=== PATIENT | female | born 1985 | race Caucasian/White ===

== ENCOUNTER 2017-12-09 22:36 | Inpatient (IN) ==
[2017-12-10] MEDS ORDERED: Temazepam 15 MG Capsule PO PRN (01:35)
[2017-12-10] MEDS ORDERED: Morphine Inj 4 MG/ML Vial IV.PUSH PRN (01:45)
[2017-12-10] MEDS: Sod Chloride 0.9% Inj 1,000 ML IV.CONT SCH ×3 (01:55→22:36)
--- NOTE | 2017-12-10 03:32 | P.HP ---
History of Present Illness Service: [facility] Primary Care Physician: No Primary Care Physician History of Present Illness: 32-year-old female who is status post gastric sleeve in June of this year presents the emergency department for the evaluation of abdominal pain. Patient reports that on yesterday at approximately 4 PM she started to have severe pain in her left lower quadrant. She thought it was gas initially and attempted to massage her abdomen to make the gas pains go away. She reports that her was massaging her abdomen when he felt a hard lump in the left lower quadrant. They came to the [facility] emergency department where CT scan revealed a abdominal wall hernia containing small bowel with associated enteritis and partial obstruction. The hernia was reduced successfully in the emergency department and the patient was sent home. She reports that after getting food at [email or web address] she had the same pain returned and the lump was present again. She returned to the [facility] emergency department and was transferred to [facility] for further evaluation. Review of Systems Denies fever or chills Denies blurry vision, otorrhea, rhinorrhea Denies sore throat and cough No chest pain, palpitations No shortness of breath or wheezing Denies constipation/diarrhea/nausea/vomiting Denies muscle pain Denies focal weakness No rashes PMFSH - History History Provided By: Patient - Medical History Medical History: Medical History (Last Updated 12/09/17 @ 18:28 by Yady Rodgers RN) Anxiety Depression Hx of small bowel obstruction PCOS (polycystic ovarian syndrome) - Surgical History Surgical History: Surgical History (Last Updated 12/09/17 @ 18:28 by Yady Rodgers RN) Hx of abdominal surgery Hx of section Hx of cholecystectomy - Family History Family History: Family History (Last Updated 12/10/17 @ 03:29 by Elda Brady MD) Other Diabetes mellitus Hypertension - Tobacco History Second Hand Smoke Exposure: No Smoking Status: Never smoker - Alcohol History How Often Do You Have a Drink Containing Alcohol: Never - Substance Use History Substance History: No History of Abuse Medications and Allergies Active Medications: Active Medications Sodium Chloride (Ns Inj) 1,000 mls @ 100 mls/hr IV.CONT .Q10H TABITHA Last Admin: 12/10/17 01:55 Dose: 100 mls/hr Morphine Sulfate (Morphine Inj) 2 mg IV.PUSH Q4H PRN PRN Reason: PAIN SCALE 6 TO 10 Ondansetron HCl (Zofran Inj) 4 mg IV.PUSH Q6H PRN PRN Reason: NAUSEA OR VOMITING Temazepam (Restoril) 15 mg PO HS PRN PRN Reason: INSOMNIA Allergies Allergy/AdvReac Type Severity Reaction Status Date / Time hydrocodone [From Vicodin] Allergy Dizziness Verified 12/09/17 18:22 NSAIDS (Non-Steroidal AdvReac Bleeding Verified 12/09/17 18:23 Anti-Inflamma Home Medications Medication Instructions Recorded Confirmed Type No Known Home Medications 12/09/17 12/09/17 History Exam Vital signs: Vital Signs 12/10/17 01:16 12/10/17 03:21 Temperature 98.0 F 98.7 F Pulse Rate 78 84 Respiratory Rate 17 17 Blood Pressure 117/76 109/60 Pulse Oximetry 94 L 97 Narrative: Gen.: No acute distress Head: Normocephalic. Atraumatic. EENT: Pupils equal round and reactive to light. Nose without drainage. Airway intact. Throat without injection. Cardiovascular: Regular rate and rhythm. No murmurs, rubs or gallops. Respiratory: Lungs clear to auscultation bilaterally. No wheezes or rhonchi. Abdomen: Soft, nontender, nondistended. No peritoneal signs. No palpable masses. Musculoskeletal: No gross deformities. No edema. Skin: No obvious rashes or erythema. Neuro: Sensory and motor grossly intact. Cranial nerves II through XII grossly intact. Psych: Appropriate mood and affect Caprini VTE Risk Assessment Caprini VTE Risk Assessment: No/Low Risk (score <= 1) Caprini Risk Assessment Model: Point Value = 1 Point Value = 2 Point Value = 3 Point Value = 5 Age 41-60 Minor surgery BMI > 25 kg/m2 Swollen legs Varicose veins or History of unexplained or recurrent spontaneous Oral contraceptives or hormone replacement Sepsis (< 1 month) Serious lung disease, including pneumonia (< 1 month) Abnormal pulmonary function Acute myocardial infarction Congestive heart failure (< 1 month) History of inflammatory bowel disease Medical patient at bed rest Age 61-74 Arthroscopic surgery Major open surgery (> 45 min) Laparoscopic surgery (> 45 min) Malignancy Confined to bed (> 72 hours) Immobilizing plaster cast Central venous access Age >= 75 History of VTE Family history of VTE Factor V Leiden Prothrombin [id number] Lupus anticoagulant Anticardiolipin antibodies Elevated serum homocysteine Heparin-induced thrombocytopenia Other congenital or acquired thrombophilia Stroke (< 1 month) Elective arthroplasty Hip, pelvis, or leg fracture Acute spinal cord injury (< 1 month) Prophylaxis Regimen: Total Risk Factor Score Risk Level Prophylaxis Regimen 0-1 Low Early ambulation 2 Moderate Order ONE of the following: *Sequential Compression Device (SCD) *Heparin 5000 units SQ BID 3-4 Higher Order ONE of the following medications: *Heparin 5000 units SQ TID *Enoxaparin/Lovenox 40 mg SQ daily (WT < 150 kg, CrCl > 30 mL/min) *Enoxaparin/Lovenox 30 mg SQ daily (WT < 150 kg, CrCl > 10-29 mL/min) *Enoxaparin/Lovenox 30 mg SQ BID (WT < 150 kg, CrCl > 30 mL/min) AND/OR *Sequential Compression Device (SCD) 5 or more Highest Order ONE of the following medications: *Heparin 5000 units SQ TID (Preferred with Epidurals) *Enoxaparin/Lovenox 40 mg SQ daily (WT < 150 kg, CrCl > 30 mL/min) *Enoxaparin/Lovenox 30 mg SQ daily (WT < 150 kg, CrCl > 10-29 mL/min) *Enoxaparin/Lovenox 30 mg SQ BID (WT < 150 kg, CrCl > 30 mL/min) AND *Sequential Compression Device (SCD) Assessment and Plan - Plan Assessment/plan: 1. Abdominal wall hernia/partial small bowel obstruction For details of CT scan see HPI General surgery consulted, appreciate recommendations N.p.o. Morphine for pain FEN N.p.o. NS at 100 cc/hour Electrolytes: Monitor and replete prn
--- NOTE | 2017-12-10 11:16 | P.PNIM ---
Subjective Interval history: 32-year-old female who is status post gastric sleeve in June of this year presents the emergency department for the evaluation of abdominal pain. Patient reports that on yesterday at approximately 4 PM she started to have severe pain in her left lower quadrant. She thought it was gas initially and attempted to massage her abdomen to make the gas pains go away. She reports that her was massaging her abdomen when he felt a hard lump in the left lower quadrant. They came to the [facility] emergency department where CT scan revealed a abdominal wall hernia containing small bowel with associated enteritis and partial obstruction. The hernia was reduced successfully in the emergency department and the patient was sent home. She reports that after getting food at [employer] she had the same pain returned and the lump was present again. She returned to the [facility] emergency department and was transferred to [facility] for further evaluation. 12-10 PATIENT HAS BEEN SEEN BY SURGERY MAY GO TO SURGERY TODAY OR TOMORROW ONLY HAS ABDOMINAL PAIN ON MOVEMENT AM LABS Physical Exam Vital signs: Vital Signs 12/10/17 01:16 12/10/17 03:21 12/10/17 08:00 Temperature 98.0 F 98.7 F 98.4 F Pulse Rate 78 84 73 Respiratory Rate 17 17 16 Blood Pressure 117/76 109/60 109/55 L Pulse Oximetry 94 L 97 96 Intake & Output 12/09/17 12/10/17 12/10/17 18:59 06:59 18:59 Other: # Voids 1 Narrative: Awake alert and oriented 3 talkative and cooperative Gen.: No acute distress Head: Normocephalic. Atraumatic. EENT: Pupils equal round and reactive to light. Nose without drainage. Airway intact. Throat without injection. Tongue is midline Neck is supple no obvious JVD Cardiovascular: Regular rate and rhythm. No murmurs, rubs or gallops. S1-S2 no S3 or S4 Respiratory: Lungs clear to auscultation bilaterally. No wheezes or rhonchi. Abdomen: Soft, nontender, nondistended. No peritoneal signs. No palpable masses. Musculoskeletal: No gross deformities. No edema. Skin: No obvious rashes or erythema. Neuro: Sensory and motor grossly intact. Cranial nerves II through XII grossly intact. Psych: Appropriate mood and affect Assessment and Plan - Plan 1. Abdominal wall hernia/partial small bowel obstruction For details of CT scan see HPI General surgery consulted, appreciate recommendations N.p.o. Morphine for pain FEN N.p.o. NS at 100 cc/hour Electrolytes: Monitor and replete prn Code Status: Full code Discussed Condition With: RN and patient and case management and family Discharge Planning: Once cleared by surgery
--- NOTE | 2017-12-10 15:05 | MB ---
cc: Shankar Banks MD DATE: 12/10/2017 CHIEF COMPLAINTS: Abdominal wall hernia, bowel obstruction. HISTORY OF PRESENT ILLNESS: The patient is a 32-year-old female with history of sleeve gastrectomy in 06/2017 with previous history of exploratory laparotomy for bowel obstruction in the past and a . The patient presents with acute onset of abdominal pain and nausea and vomiting. She states the pain started at 4 p.m. yesterday as severe left lower quadrant. She states she has not passed gas and had some associated nausea and vomiting. Pain was 8/10, currently 3/10, worse with movement, better with lying still. She came to the emergency department for further evaluation including a CT scan showing a moderate-size left lower umbilical ventral hernia containing small bowel. This was done at [facility] and the patient was reduced in the ER. The patient was sent home; however, developed recurrence of a hernia several hours post-discharge. Therefore, transferred to [place] for definitive management. PAST MEDICAL HISTORY: Morbid obesity, PCOS, depression, anxiety, small-bowel obstruction. PAST SURGICAL HISTORY: Cholecystectomy, , sleeve gastrectomy, bowel obstruction surgery in 2012, exploratory laparotomy. SOCIAL HISTORY: Denies smoking, ETOH, or IVDA. ALLERGIES: HYDROCODONE AND NSAIDS. MEDICATIONS: See EMR. FAMILY HISTORY: Mother with diabetes and hypertension. REVIEW OF SYSTEMS: GENERAL: Denies fevers or chills. HEENT: Denies eye pain or ear pain. NECK: No swelling or pain. LUNGS: Denies cough or wheeze. HEART: Denies palpitations or chest pain. CONSTITUTIONAL: Complains of a hernia, nausea, vomiting, abdominal pain. GENITOURINARY: Denies dysuria or hematuria. ENDOCRINE: Denies polyuria or polydipsia. INTEGUMENT: Denies any masses or lesions. PSYCHIATRIC: Denies change in mood or sensorium. PHYSICAL EXAMINATION: GENERAL: The patient in no acute distress. VITAL SIGNS: Temperature 98, pulse 78, respiratory 17, blood pressure 117/76, saturation 94%. HEENT: Pupils equal, round, reactive. NECK: Supple. Trachea midline. LUNGS: Clear to auscultation, bilateral expansion. HEART: S1, S2 regular. ABDOMEN: Soft. Positive palpable hernia defect appears currently reduced. Positive tenderness to palpation. No rebound, no guarding. EXTREMITIES: Warm and well perfused. NEUROLOGIC: GCS of 15, 5/5 motor in all extremities. PSYCHIATRIC: Appropriate mood, appropriate insight. LABORATORY AND DIAGNOSTIC DATA: WBC 11, hemoglobin 14.9, hematocrit 42.8, platelets 372,000. Sodium 141, potassium 3.6, chloride 105, BUN 19, creatinine 0.7, AST 14, ALT 24, alkaline phosphatase of 72, lipase 25. DIAGNOSTIC DATA: CT reviewed by myself, showing a large hernia defect lower umbilical midline. Also a secondary smaller defect proximal to this. ASSESSMENT: The patient is a 32-year-old female with a history of sleeve gastrectomy, history of bowel obstruction, and exploratory laparotomy, who presents with initial incarceration of incisional hernia, currently reduced; however, presence of persistent pain and recurrence. PLAN: As a full workup for this patient with the above main issues, the patient has done relatively well from her sleeve gastrectomy. She has lost 60 pounds. She continues to use vitamins and is feeling pretty well from this. She does appear to have developed an incisional hernia as a result of her open midline laparotomy scar and warrants repair. Discussed with the patient in detail. We will attempt a laparoscopic repair, possible open. The patient states understanding and agrees and would like to proceed. MD HI Simons/ashley , 02:29 PM , 02:39 PM
[2017-12-10 15:44] LABS: Baso % (Auto) 0.5 % (0.0-2.0); Eos # (Auto) 0.1 th/mm3 (0.0-0.4); Eos % (Auto) 0.9 % (0.0-4.0); Hematocrit 40.1 % (35.0-46.0); Hemoglobin 13.9 gm/dL (11.6-15.3); Lymph # (Auto) 2.6 th/mm3 (1.0-4.8); Lymph % (Auto) 30.7 % (9.0-44.0); Mean Corpuscular HGB Conc 34.7 % (32.0-36.0); Mean Corpuscular Hemoglobin 31.1 pg (27.0-34.0); Mean Corpuscular Volume 89.7 fL (80.0-100.0); Mean Platelet Volume 8.4 fL (7.0-11.0); Mono # (Auto) 0.7 th/mm3 (0.0-0.9); Mono % (Auto) 7.8 % (0.0-8.0); Neut # (Auto) 5.2 th/mm3 (1.8-7.7); Neut % (Auto) 60.1 % (16.0-70.0); Platelet Count 323 th/mm3 (150-450); Red Blood Count 4.47 mil/mm3 (4.00-5.30); Red Cell Distribution Width 13.1 % (11.6-17.2); White Blood Count 8.6 th/mm3 (4.0-11.0)
[2017-12-10 16:18] LABS: Anion Gap 11 meq/L (5-15); Blood Urea Nitrogen 12 mg/dL (7-18); Calcium 8.3 mg/dL (8.5-10.1); Carbon Dioxide 23.5 meq/L (21.0-32.0); Chloride 109 meq/L (98-107); Glomerular Filtration Rate Greater Than 89 mL/min (>89); Glucose,Random 78 mg/dL (74-106); Potassium 3.7 meq/L (3.5-5.1); Sodium 143 meq/L (136-145)
[2017-12-10] MEDS ORDERED: Chlorhexidine Gluconate 2% 1 Pack (2 Cloths) TOPICAL SCH (23:15)
[2017-12-10] MEDS ORDERED: Sodium Chlor 0.9% Inj 500 ML IV.SIG SCH (23:45)
[2017-12-11 06:53] LABS: Baso # (Auto) 0.1 th/mm3 (0.0-0.2); Baso % (Auto) 0.5 % (0.0-2.0); Eos # (Auto) 0.1 th/mm3 (0.0-0.4); Eos % (Auto) 1.3 % (0.0-4.0); Hematocrit 39.3 % (35.0-46.0); Hemoglobin 13.2 gm/dL (11.6-15.3); Lymph # (Auto) 4.2 th/mm3 (1.0-4.8); Lymph % (Auto) 39.3 % (9.0-44.0); Mean Corpuscular HGB Conc 33.7 % (32.0-36.0); Mean Corpuscular Hemoglobin 30.6 pg (27.0-34.0); Mean Corpuscular Volume 90.9 fL (80.0-100.0); Mean Platelet Volume 8.2 fL (7.0-11.0); Mono % (Auto) 9.6 % (0.0-8.0); Neut # (Auto) 5.3 th/mm3 (1.8-7.7); Neut % (Auto) 49.3 % (16.0-70.0); Platelet Count 292 th/mm3 (150-450); Red Blood Count 4.32 mil/mm3 (4.00-5.30); Red Cell Distribution Width 13.4 % (11.6-17.2); White Blood Count 10.8 th/mm3 (4.0-11.0)
[2017-12-11 07:06] LABS: Anion Gap 7 meq/L (5-15); Aspartate Aminotransferase 10 U/L (15-37); Blood Urea Nitrogen 7 mg/dL (7-18); Calcium 8.2 mg/dL (8.5-10.1); Carbon Dioxide 25.8 meq/L (21.0-32.0); Chloride 110 meq/L (98-107); Glomerular Filtration Rate Greater Than 89 mL/min (>89); Glucose,Random 83 mg/dL (74-106); Magnesium 2.1 mg/dL (1.5-2.5); Potassium 3.7 meq/L (3.5-5.1); Sodium 143 meq/L (136-145)
[2017-12-11 07:15] LABS: Alanine Aminotransferase 17 U/L (10-53); Alkaline Phosphatase 55 U/L (45-117); Free T4 (Free Thyroxine) 1.12 ng/dL (0.76-1.46); Phosphorus 4.1 mg/dL (2.5-4.9); Total Protein 6.1 g/dL (6.4-8.2)
[2017-12-11] MEDS ORDERED: Bupivacaine/Epinephrine Inj 0.25% 50 ML Vial ONE (08:32)
[2017-12-11] MEDS ORDERED: Dexmedetomidine Inj 200 MCG/2 ML Vial ONE (10:25)
[2017-12-11] MEDS: Sod Chloride 0.9% Inj 1,000 ML IV.CONT SCH ×2 (10:30→17:09)
--- NOTE | 2017-12-11 11:35 | P.OP ---
- Preoperative Diagnosis (1) Incarcerated incisional hernia - Postoperative Diagnosis (1) Incarcerated incisional hernia Date of procedure: 12/11/17 Procedure: lap incisional ventral hernia repair with underlay mesh Anesthesia: GETA Surgeon: Shankar Banks MD Estimated blood loss (mL): 5 Pathology: none sent Operation and Findings: ischemia of bowel segment improved at end of operation 3cm defect [id number] placment
[2017-12-11] MEDS ORDERED: fentaNYL Citrate Inj 100 MCG/2 ML Ampul ONE (11:51)
[2017-12-11] MEDS ORDERED: *morphine SULFATE 4 MG/ML PERIprocedure ONLY ONE ×3 (11:54→12:12)
[2017-12-11] MEDS ORDERED: Glycopyrrolate Inj 1 MG/5 ML Syringe IV.PUSH ONE (12:00)
[2017-12-11] MEDS ORDERED: Neostigmine Inj 5 MG/5 ML Syringe IV.PUSH ONE (12:00)
[2017-12-11] MEDS ORDERED: Lidocaine PF 1% Inj 5 ML Syringe INFILTRATN ONE (12:00)
[2017-12-11] MEDS ORDERED: *Meperidine Inj 25 MG/ML Vial PERIprocedural Use ONLY ONE (13:24)
--- NOTE | 2017-12-11 14:57 | P.PNIM ---
Subjective Interval history: 32-year-old female who is status post gastric sleeve in June of this year presents the emergency department for the evaluation of abdominal pain. Patient reports that on yesterday at approximately 4 PM she started to have severe pain in her left lower quadrant. She thought it was gas initially and attempted to massage her abdomen to make the gas pains go away. She reports that her was massaging her abdomen when he felt a hard lump in the left lower quadrant. They came to the [facility] emergency department where CT scan revealed a abdominal wall hernia containing small bowel with associated enteritis and partial obstruction. The hernia was reduced successfully in the emergency department and the patient was sent home. She reports that after getting food at [employer] she had the same pain returned and the lump was present again. She returned to the [facility] emergency department and was transferred to [facility] for further evaluation. 12-10 PATIENT HAS BEEN SEEN BY SURGERY MAY GO TO SURGERY TODAY OR TOMORROW ONLY HAS ABDOMINAL PAIN ON MOVEMENT AM LABS 12-11 HAD SURGERY TODAY WITH DR BANKS SEEN IN PACU QUITE LETHARGIC BUT COMFORTABLE AT THIS TIME AM LABS HOPEFULLY HOME TOMORROW Physical Exam Vital signs: Vital Signs 12/10/17 16:00 12/11/17 05:31 12/11/17 07:49 Temperature 98.5 F 98.0 F Pulse Rate 82 83 Respiratory Rate 16 16 16 Blood Pressure 120/55 L 110/60 Pulse Oximetry 98 99 12/11/17 12:47 Temperature 97.6 F Pulse Rate 66 Respiratory Rate 18 Blood Pressure 103/58 L Pulse Oximetry Intake & Output 12/10/17 12/11/17 12/11/17 18:59 06:59 18:59 Intake Total 1800 / 1800 1000 / 1000 2000 / 2000 Output Total 1500 / 1500 110 / 110 Balance 300 / 300 1000 / 1000 1890 / 1890 Weight 94 kg Intake: IV 1000 / 1000 1000 / 1000 1000 / 1000 NS Inj 1,000 ML @ 100 mls/hr IV 1000 / 1000 1000 / 1000 1000 / 1000 .CONT .Q10H TABITHA Rx#:[id number] Oral 800 / 800 Anesthesia Amount 1000 / 1000 Output: Urine 1500 / 1500 Estimated Blood Loss 10 / 10 Urine Amount (Catheter) 100 / 100 Indwelling Urethral Catheter 100 / 100 Other: # Voids 5 Date of Last Bowel Movement 12/09/17 Narrative: Awake alert and oriented 3 talkative and cooperative Gen.: No acute distress Head: Normocephalic. Atraumatic. EENT: Pupils equal round and reactive to light. Nose without drainage. Airway intact. Throat without injection. Tongue is midline Neck is supple no obvious JVD Cardiovascular: Regular rate and rhythm. No murmurs, rubs or gallops. S1-S2 no S3 or S4 Respiratory: Lungs clear to auscultation bilaterally. No wheezes or rhonchi. Abdomen: Soft, nontender, nondistended. No peritoneal signs. No palpable masses. Musculoskeletal: No gross deformities. No edema. Skin: No obvious rashes or erythema. Neuro: Sensory and motor grossly intact. Cranial nerves II through XII grossly intact. Psych: Appropriate mood and affect - Urinary Catheter Management Indwelling Urethral Catheter Cath placed during this visit: yes Reason for continuing: Acute urinary retention Insertion date: 12/11/17 Insertion time: 09:20 Results - Labs CBC & Chem 7: 12/11/17 05:45 12/11/17 05:45 Laboratory Results - last 24 hr 12/10/17 12/10/17 12/11/17 14:06 14:06 05:45 WBC 8.6 10.8 RBC 4.47 4.32 Hgb 13.9 13.2 Hct 40.1 39.3 MCV 89.7 90.9 MCH 31.1 30.6 MCHC 34.7 33.7 RDW 13.1 13.4 Plt Count 323 292 MPV 8.4 8.2 Neut % (Auto) 60.1 49.3 Lymph % (Auto) 30.7 39.3 Moffat % (Auto) 7.8 9.6 H Eos % (Auto) 0.9 1.3 Baso % (Auto) 0.5 0.5 Neut # (Auto) 5.2 5.3 Lymph # (Auto) 2.6 4.2 Moffat # (Auto) 0.7 1.0 H Eos # (Auto) 0.1 0.1 Baso # (Auto) 0.0 0.1 WBC Differential . . Differential Comment Auto diff final Auto diff final Sodium 143 Potassium 3.7 Chloride 109 H Carbon Dioxide 23.5 Anion Gap 11 BUN 12 Creatinine 0.63 Estimated GFR Greater than 89 Random Glucose 78 Calcium 8.3 L Phosphorus Magnesium Total Bilirubin AST ALT Alkaline Phosphatase Total Protein Albumin TSH Free T4 12/11/17 05:45 WBC RBC Hgb Hct MCV MCH MCHC RDW Plt Count MPV Neut % (Auto) Lymph % (Auto) Moffat % (Auto) Eos % (Auto) Baso % (Auto) Neut # (Auto) Lymph # (Auto) Moffat # (Auto) Eos # (Auto) Baso # (Auto) WBC Differential Differential Comment Sodium 143 Potassium 3.7 Chloride 110 H Carbon Dioxide 25.8 Anion Gap 7 BUN 7 Creatinine 0.64 Estimated GFR Greater than 89 Random Glucose 83 Calcium 8.2 L Phosphorus 4.1 Magnesium 2.1 Total Bilirubin 0.4 AST 10 L ALT 17 Alkaline Phosphatase 55 Total Protein 6.1 L D Albumin 3.0 L D TSH 1.390 Free T4 1.12 - Procedures - Preoperative Diagnosis (1) Incarcerated incisional hernia - Postoperative Diagnosis (1) Incarcerated incisional hernia Date of procedure: 12/11/17 Procedure: lap incisional ventral hernia repair with underlay mesh Anesthesia: GETA Surgeon: Shankar Banks MD Estimated blood loss (mL): 5 Pathology: none sent Operation and Findings: ischemia of bowel segment improved at end of operation 3cm defect [id number] placment Assessment and Plan - Plan 1. Abdominal wall hernia/partial small bowel obstruction For details of CT scan see HPI General surgery consulted, appreciate recommendations N.p.o. Morphine for pain SP HERNIA REPAIR WITH MESH BY DR BANKS 8-13 FEN DIET PER SURGERY NS at 100 cc/hour Electrolytes: Monitor and replete prn HOPEFULLY HOME TOMORROW AM LABS PAIN CONTROL Code Status: FULL CODE Discussed Condition With: RN AND PT Discharge Planning: Once cleared by surgery
[2017-12-11] MEDS ORDERED: *HYDROmorphone PF Inj 1 MG/ML Ampul PERIprocedural Use ONLY ONE (15:00)
[2017-12-11 16:05] LABS: Hemoglobin A1c 5.7 % (4.3-6.0)
[2017-12-11] MEDS: ceFAZolin Inj 2,000 MG in Sodium Chlor 0.9% Inj 80 ML IV.SIG SCH (17:09)
[2017-12-12] MEDS: ceFAZolin Inj 2,000 MG in Sodium Chlor 0.9% Inj 80 ML IV.SIG SCH ×2 (01:48→13:10)
[2017-12-12] MEDS: Sod Chloride 0.9% Inj 1,000 ML IV.CONT SCH ×2 (03:51→15:25)
[2017-12-12] MEDS ORDERED: Acetaminophen 325 MG Tablet PO PRN (08:28)
--- NOTE | 2017-12-12 08:35 | P.PN ---
Subjective Interval history: This is a pleasant 32 y/o Female who is in status pos gastric sleeve in June this year, who came to ER with abdominal pain on Left Lower quadrant, CT abdomen revealed a abdominal wall hernia containing small bowel with associated enteritis and partial obstruction. The hernia was reduced successfully in the emergency department and the patient was sent home. She reports that after getting food at [employer] she had the same pain returned and the lump was present again. is in status post Hernia repair performed 12/11/17. was left Urinary Catheter due to Urinary retention 12/12: Stable in her bedroom her present, no pain has a binder on her abdomen, Vizcarra cath present discussed with General Surgery RODRIGUEZ carlson to remove Vizcarra cath also patient complaint of some Dysuria probable related to Vizcarra cath, asked for urinalysis, and following, not yet clear for discharge by General Surgery probable later today. Physical Exam Vital signs: Vital Signs 12/11/17 11:44 12/11/17 12:00 12/11/17 12:15 Temperature Pulse Rate 66 61 58 L Respiratory Rate 20 20 20 Blood Pressure 103/58 L 105/64 103/64 Pulse Oximetry 94 L 96 96 12/11/17 12:30 12/11/17 12:47 12/11/17 14:00 Temperature 97.6 F Pulse Rate 61 66 59 L Respiratory Rate 20 18 20 Blood Pressure 104/62 103/58 L 96/58 L Pulse Oximetry 96 96 12/11/17 15:15 12/11/17 16:00 12/11/17 20:00 Temperature 97.9 F 98.1 F 98.3 F Pulse Rate 61 64 66 Respiratory Rate 20 17 20 Blood Pressure 100/56 L 111/64 113/56 L Pulse Oximetry 96 92 L 94 L 12/12/17 00:00 12/12/17 03:46 Temperature 98.3 F 97.6 F Pulse Rate 82 76 Respiratory Rate 17 18 Blood Pressure 114/62 104/61 Pulse Oximetry 98 95 Intake & Output 12/11/17 12/12/17 12/12/17 18:59 06:59 18:59 Intake Total 3100 / 3100 1460 / 1460 Output Total 110 / 110 2900 / 2900 Balance 2990 / 2990 -1440 / -1440 Intake: IV 2100 / 2100 1100 / 1100 NS Inj 1,000 ML @ 100 mls/hr IV 2000 / 2000 1000 / 1000 .CONT .Q10H TABITHA Rx#:[id number] Ancef Inj 2,000 MG In NS Inj 80 100 / 100 100 / 100 ML @ 100 mls/hr IV.SIG Q8H TABITHA Rx#:[id number] Oral 360 / 360 Anesthesia Amount 1000 / 1000 Output: Estimated Blood Loss 10 / 10 Urine Amount (Catheter) 100 / 100 2900 / 2900 Indwelling Urethral Catheter 100 / 100 2900 / 2900 Other: Date of Last Bowel Movement 12/09/17 Narrative: Awake Obesity, no acute distress. Gen.: No acute distress Head: Normocephalic. Atraumatic. EENT: Pupils equal round and reactive to light. Nose without drainage. Airway intact. Throat without injection. Tongue is midline Neck is supple no obvious JVD Cardiovascular: Regular rate and rhythm. No murmurs, rubs or gallops. S1-S2 no S3 or S4 Respiratory: Lungs clear to auscultation bilaterally. No wheezes or rhonchi. Abdomen: Soft, nontender, nondistended. No peritoneal signs. No palpable masses. Musculoskeletal: No gross deformities. No edema. Skin: No obvious rashes or erythema. Neuro: Sensory and motor grossly intact. Cranial nerves II through XII grossly intact. Psych: Appropriate mood and affect - Urinary Catheter Management Indwelling Urethral Catheter Cath placed during this visit: yes Reason for continuing: Hourly intake/output Insertion date: 12/11/17 Insertion time: 09:20 Results - Labs CBC & Chem 7: 12/11/17 05:45 12/11/17 05:45 Laboratory Results - last 24 hr 12/11/17 05:45 Hemoglobin A1c 5.7 - Procedures - Preoperative Diagnosis (1) Incarcerated incisional hernia - Postoperative Diagnosis (1) Incarcerated incisional hernia Date of procedure: 12/11/17 Procedure: lap incisional ventral hernia repair with underlay mesh Anesthesia: GETA Surgeon: Shankar Banks MD Estimated blood loss (mL): 5 Pathology: none sent Operation and Findings: ischemia of bowel segment improved at end of operation 3cm defect [id number] placment Assessment and Plan - Plan 1. Abdominal wall hernia/partial small bowel obstruction For details of CT scan see HPI SP HERNIA REPAIR WITH MESH BY DR BANKS 12-11 IV fluid. Discussed with nurse the patient had some Urinary changes and asked for Urinalysis. 2. Obesity strongly recommended diet and exercise DVT prophylaxis SCDs encourage ambulation. Code Status: Full Code Discussed Condition With: patient, her in the room and Nurse Miss Cedillo Discharge Planning: once cleared by General solutions specialist.
[2017-12-12] MEDS ORDERED: ceFAZolin Inj 2,000 MG in Sodium Chlor 0.9% Inj 80 ML IV.SIG SCH (12:00)
[2017-12-12 12:39] LABS: Bacteria,Urine Rare /hpf; Bilirubin,Urine Negative (Negative); Clarity,Urine Clear (Clear); Color,Urine Yellow (Yellw/Straw); Glucose,Urine (UA) Negative (Negative); Leukocyte Esterase,Urine Negative (Negative); Mucus,Urine Few /lpf (Occasional); Nitrite,Urine Negative (Negative); Specific Gravity,Urine 1.008 (1.002-1.035)
--- NOTE | 2017-12-12 14:07 | P.PNGS ---
Subjective Patient reports: tolerating liquids well (no acute issues, no flatus) Physical Exam Vital signs: Vital Signs 12/11/17 15:15 12/11/17 16:00 12/11/17 20:00 Temperature 97.9 F 98.1 F 98.3 F Pulse Rate 61 64 66 Respiratory Rate 20 17 20 Blood Pressure 100/56 L 111/64 113/56 L Pulse Oximetry 96 92 L 94 L 12/12/17 00:00 12/12/17 03:46 12/12/17 08:00 Temperature 98.3 F 97.6 F 97.9 F Pulse Rate 82 76 77 Respiratory Rate 17 18 17 Blood Pressure 114/62 104/61 109/58 L Pulse Oximetry 98 95 93 L 12/12/17 12:00 Temperature 97.8 F Pulse Rate 73 Respiratory Rate 17 Blood Pressure 117/65 Pulse Oximetry 92 L Intake & Output 12/11/17 12/12/17 12/12/17 18:59 06:59 18:59 Intake Total 3100 / 3100 1460 / 1460 Output Total 110 / 110 2900 / 2900 Balance 2990 / 2990 -1440 / -1440 Intake: IV 2100 / 2100 1100 / 1100 NS Inj 1,000 ML @ 100 mls/hr IV 2000 / 2000 1000 / 1000 .CONT .Q10H TABITHA Rx#:[id number] Ancef Inj 2,000 MG In NS Inj 80 100 / 100 100 / 100 ML @ 100 mls/hr IV.SIG Q8H TABITHA Rx#:[id number] Oral 360 / 360 Anesthesia Amount 1000 / 1000 Output: Estimated Blood Loss 10 / 10 Urine Amount (Catheter) 100 / 100 2900 / 2900 Indwelling Urethral Catheter 100 / 100 2900 / 2900 Other: Date of Last Bowel Movement 12/09/17 - Routine Abdominal Exam Present: soft (incisional tenderness) - Urinary Catheter Management Indwelling Urethral Catheter Cath placed during this visit: yes Reason for continuing: Hourly intake/output Insertion date: 12/11/17 Insertion time: 09:20 Assessment and Plan - Plan pod 1 lap hernia PLAN advance diet oob pain control po possible d/c later today
[2017-12-12] MEDS: Acetaminophen/Codeine 300/30 MG Tablet PO PRN (17:50)
[2017-12-12] MEDS ORDERED: Lactobacillus Acidophilus/L. Spores Tablet PO SCH (18:00)
--- NOTE | 2017-12-12 19:06 | MP ---
cc: Shankar Banks MD DATE OF OPERATION: 12/11/2017 PREOPERATIVE DIAGNOSIS: Incarcerated incisional hernia. POSTOPERATIVE DIAGNOSIS: Incarcerated incisional hernia. PROCEDURE PERFORMED: 1. Laparoscopic ventral incisional hernia repair with underlay mesh 10 x 10 Synecor. 2. Laparoscopic lysis of adhesions. SURGEON: Shankar Banks MD JOURNEYMAN WELDER: Kristy ANESTHESIA: GETA. IV FLUIDS: See anesthesia sheet. ESTIMATED BLOOD LOSS: 10 mL DRAINS: None. COMPLICATIONS: None. WOUND CLASSIFICATION: Clean. SPECIMENS: None. FINDINGS: Moderate size hernia, bruised hemorrhagic bowel, no evidence of necrosis of bowel, improvement following procedure. INDICATIONS: Patient is a 32-year-old female with a history of sleeve gastrectomy. History of intra-abdominal previous surgeries as well. The patient presented with acute onset of abdominal pain, nausea, vomiting, and findings of ventral incisional hernia incarceration. The patient had this reduced; however, was heading home and had a recurrence. Therefore, re-presented to the emergency department. The patient to undergo definitive repair. DETAILS OF PROCEDURE: The patient was taken to the operating suite, placed in the supine position. She was prepped and draped in usual sterile fashion after induction of general endotracheal anesthesia. Brief timeout was done, stating correct patient, procedure, and surgical site. We were all agreeable to this. Attention first directed to the left upper quadrant where a stab holger incision was made with an 11 blade. The Optiview 5 mm Visiport was used to enter the abdomen safely. Abdomen insufflated to 15 mm pneumoperitoneum. On closer inspection, no evidence of injury. The patient noted to have reduction of hernia upon insufflation and still with some incarcerated fat and omentum. Several other adhesions as well. Two other ports were placed in the left lower quadrant, one 5 mm and one 12 mm port, and another 5 mm right upper quadrant. The adhesions were lysed and mobilized and taken down with Harmonic scalpel. The hernia was reduced. The sac was removed. Hemostasis was achieved. A #1 nonabsorbable V-Loc suture was used in order to close intracorporally the primary defect. Next, a 12 x 12 mm Synecor around this was obtained and cut to size to a square 10 x 10 cm. This was measured out and noted to have adequate current coverage of the hernia defect. Transfascial sutures were placed in the 12 o'clock, 3 o'clock, 6 o'clock, and 9 o'clock positions using a [place] suture. The mesh was then rolled up and placed inside the abdomen. The transfascial sutures were secured using a [place] suture passer. Small stab holger incisions were made again at the 12, 3, 6, and 9 o'clock positions and brought through the skin and tied, noted to be snugly in place and covering completely the defect with adequate overlap. The suture tacker was then used for the periphery in order to reinforce and adhere the mesh. The inferior suture was noted to transverse the skin flap. Therefore, this transfascial suture was removed in the anterior-inferior portion and 2 transfascial sutures were placed at the inferior aspect to secure the mesh appropriately in place. This was done with the suture passer. Next, the small bowel that had been incarcerated in the ventral hernia was reexamined. There was no evidence of necrosis or perforation. The bowel looked slightly hemorrhagic in appearance; however, was completely pink and viable and had peristalsis. Next, the 12 mm incision was closed with 3-0 Vicryl using a suture passer to the fascia, after the port was removed. Local anesthetic injected at all port sites. 4-0 Monocryl used after pneumoperitoneum was removed and ports were removed at all port sites. Sterile dressing including Mastisol and Steri-Strips were placed. The patient tolerated the procedure well. There were no intraoperative complications. All lap and instrument counts were correct at the end of the procedure. The patient was extubated and taken to PACU. MD HI Simons/salena , 05:15 PM , 05:31 PM
[2017-12-12] MEDS: Lactobacillus Acidophilus/L. Spores Tablet PO SCH (20:31)
[2017-12-12] MEDS: Polyethylene Glycol 3350 17 GM Packet PO SCH (20:31)
[2017-12-13] MEDS: Sod Chloride 0.9% Inj 1,000 ML IV.CONT SCH ×2 (02:54→09:45)
[2017-12-13] MEDS: Acetaminophen/Codeine 300/30 MG Tablet PO PRN ×2 (07:37)
--- NOTE | 2017-12-13 08:19 | P.PN ---
Subjective Interval history: This is a pleasant 32 y/o Female who is in status pos gastric sleeve in June this year, who came to ER with abdominal pain on Left Lower quadrant, CT abdomen revealed a abdominal wall hernia containing small bowel with associated enteritis and partial obstruction. The hernia was reduced successfully in the emergency department and the patient was sent home. She reports that after getting food at [employer] she had the same pain returned and the lump was present again. is in status post Hernia repair performed 12/11/17. was left Urinary Catheter due to Urinary retention 12/12: Stable in her bedroom her present, no pain has a binder on her abdomen, Vizcarra cath present discussed with General Surgery MACHINE III COREMAKER okay to remove Vizcarra cath also patient complaint of some Dysuria probable related to Vizcarra cath, asked for urinalysis, and following, not yet clear for discharge by General Surgery probable later today. 12/13: Seen in his bedroom, no complaint, discussed with General Surgery MACHINE III COREMAKER recommended to discharge the patient and no antibiotics necessary. Physical Exam Vital signs: Vital Signs 12/12/17 12:00 12/12/17 16:00 12/12/17 20:00 Temperature 97.8 F 97.7 F 98 F Pulse Rate 73 76 78 Respiratory Rate 17 17 20 Blood Pressure 117/65 111/67 124/76 Pulse Oximetry 92 L 93 L 95 12/13/17 00:00 12/13/17 08:00 Temperature 98 F 98.6 F Pulse Rate 78 78 Respiratory Rate 20 20 Blood Pressure 128/81 128/77 Pulse Oximetry 94 L 95 Intake & Output 12/12/17 12/13/17 12/13/17 18:59 06:59 18:59 Intake Total 2100 / 2100 480 / 480 Output Total 2250 / 2250 Balance -150 / -150 480 / 480 Weight 100.4 kg Intake: IV 1100 / 1100 NS Inj 1,000 ML @ 100 mls/hr IV 1000 / 1000 .CONT .Q10H TABITHA Rx#:[id number] Ancef Inj 2,000 MG In NS Inj 80 100 / 100 ML @ 100 mls/hr IV.SIG Q8H TABITHA Rx#:[id number] Oral 1000 / 1000 480 / 480 Output: Urine 2250 / 2250 Other: Post Void Residual 0 # Voids 2 Date of Last Bowel Movement 12/09/17 12/09/17 Narrative: Awake Obesity, no acute distress. Gen.: No acute distress Head: Normocephalic. Atraumatic. EENT: Pupils equal round and reactive to light. Nose without drainage. Airway intact. Throat without injection. Tongue is midline Neck is supple no obvious JVD Cardiovascular: Regular rate and rhythm. No murmurs, rubs or gallops. S1-S2 no S3 or S4 Respiratory: Lungs clear to auscultation bilaterally. No wheezes or rhonchi. Abdomen: Soft, binder in place. Musculoskeletal: No gross deformities. No edema. Skin: No obvious rashes or erythema. Neuro: Sensory and motor grossly intact. Cranial nerves II through XII grossly intact. Psych: Appropriate mood and affect - Urinary Catheter Management Indwelling Urethral Catheter Cath placed during this visit: yes Reason for continuing: Hourly intake/output Insertion date: 12/11/17 Insertion time: 09:20 Results - Labs CBC & Chem 7: 12/11/17 05:45 12/11/17 05:45 Laboratory Results - last 24 hr 12/12/17 09:53 Urine Color Yellow Urine Clarity Clear Urine pH 7.0 Ur Specific [place] 1.008 Urine Protein Negative Urine Glucose (UA) Negative Urine Ketones Negative Urine Occult Blood Negative Urine Nitrate Negative Urine Bilirubin Negative Urine Urobilinogen Less than 2 Ur Leukocyte Esterase Negative Urine RBC 3 Urine WBC 1 Urine Bacteria Rare H Urine Mucus Few H Micro UA Comment Cath-culture ind Urine Culture Comments Cath-cult indicated - Procedures - Preoperative Diagnosis (1) Incarcerated incisional hernia - Postoperative Diagnosis (1) Incarcerated incisional hernia Date of procedure: 12/11/17 Procedure: lap incisional ventral hernia repair with underlay mesh Anesthesia: GETA Surgeon: Shankar Callaway MD Estimated blood loss (mL): 5 Pathology: none sent Operation and Findings: ischemia of bowel segment improved at end of operation 3cm defect [id number] placment Assessment and Plan - Plan 1. Abdominal wall hernia/partial small bowel obstruction For details of CT scan see HPI SP HERNIA REPAIR WITH MESH BY DR CALLAWAY 8 IV fluid. Okay to discharge from Surgery standpoint. 2. Obesity strongly recommended diet and exercise DVT prophylaxis SCDs encourage ambulation. Code Status: Full code Discussed Condition With: Patient and General Surgery MACHINE III COREMAKER Discharge Planning: Discharge Home now.
[2017-12-13] MEDS: Polyethylene Glycol 3350 17 GM Packet PO SCH (08:46)
[2017-12-13] MEDS: Lactobacillus Acidophilus/L. Spores Tablet PO SCH (08:46)
--- NOTE | 2017-12-13 10:47 | P.PNGS ---
Subjective Patient reports: feels better, tolerating a regular diet, flatus Physical Exam Vital signs: Vital Signs 12/12/17 12:00 12/12/17 16:00 12/12/17 20:00 Temperature 97.8 F 97.7 F 98 F Pulse Rate 73 76 78 Respiratory Rate 17 17 20 Blood Pressure 117/65 111/67 124/76 Pulse Oximetry 92 L 93 L 95 12/13/17 00:00 12/13/17 08:00 Temperature 98 F 98.6 F Pulse Rate 78 78 Respiratory Rate 20 20 Blood Pressure 128/81 128/77 Pulse Oximetry 94 L 95 Intake & Output 12/12/17 12/13/17 12/13/17 18:59 06:59 18:59 Intake Total 2100 / 2100 480 / 480 Output Total 2250 / 2250 Balance -150 / -150 480 / 480 Weight 100.4 kg Intake: IV 1100 / 1100 NS Inj 1,000 ML @ 100 mls/hr IV 1000 / 1000 .CONT .Q10H TABITHA Rx#:[id number] Ancef Inj 2,000 MG In NS Inj 80 100 / 100 ML @ 100 mls/hr IV.SIG Q8H TABITHA Rx#:[id number] Oral 1000 / 1000 480 / 480 Output: Urine 2250 / 2250 Other: Post Void Residual 0 # Voids 2 Date of Last Bowel Movement 12/09/17 12/09/17 - Routine Respiratory Exam Present: CTA bilaterally - Routine Cardiovascular Exam Present: RRR - Routine Abdominal Exam Present: soft (incision c/d/i, no infection) - Urinary Catheter Management Indwelling Urethral Catheter Cath placed during this visit: yes Reason for continuing: Hourly intake/output Insertion date: 12/11/17 Insertion time: 09:20 Assessment and Plan - Plan pod 2 lap hernia PLAN advance diet oob pain control po d/c today
--- NOTE | 2017-12-13 10:52 | P.DS ---
Date of admission: 12/10/17 00:53 Primary care physician: No Primary Care Physician Attending physician on discharge: Jeancarlos Garcia Anticipated date of discharge: 12/13/17 Brief History from admission: 32-year-old female who is status post gastric sleeve in June of this year presents the emergency department for the evaluation of abdominal pain. Patient reports that on yesterday at approximately 4 PM she started to have severe pain in her left lower quadrant. She thought it was gas initially and attempted to massage her abdomen to make the gas pains go away. She reports that her was massaging her abdomen when he felt a hard lump in the left lower quadrant. They came to the [facility] emergency department where CT scan revealed a abdominal wall hernia containing small bowel with associated enteritis and partial obstruction. The hernia was reduced successfully in the emergency department and the patient was sent home. She reports that after getting food at [employer] she had the same pain returned and the lump was present again. She returned to the [facility] emergency department and was [place] [facility] [place]. DS: Diagnosis - Discharge Diagnosis (1) Incarcerated incisional hernia Status: Acute DS: Medications - Discharge Medications Prescriptions: acetaminophen-codeine [Tylenol-Codeine #3] 1 tab PO Q6H PRN 3 Days #12 tab PRN Reason: PAIN DS: Summary Hospital Course: This is a pleasant 32 y/o Female who is in status pos gastric sleeve in June this year, who came to ER with abdominal pain on Left Lower quadrant, CT abdomen revealed a abdominal wall hernia containing small bowel with associated enteritis and partial obstruction. The hernia was reduced successfully in the emergency department and the patient was sent home. She reports that after getting food at [employer] she had the same pain returned and the lump was present again. is in status post Hernia repair performed 12/11/17. was left Urinary Catheter due to Urinary retention 12/12: Stable in her bedroom her present, no pain has a binder on her abdomen, Vizcarra cath present discussed with General Surgery NON DESTRUCTIVE TESTING INSPECTOR okay to remove Vizcarra cath also patient complaint of some Dysuria probable related to Vizcarra cath, asked for urinalysis, and following, not yet clear for discharge by General Surgery probable later today. 12/13: Seen in his bedroom, no complaint, discussed with General Surgery NON DESTRUCTIVE TESTING INSPECTOR recommended to discharge the patient and no antibiotics necessary. Awake Obesity, no acute distress. Gen.: No acute distress Head: Normocephalic. Atraumatic. EENT: Pupils equal round and reactive to light. Nose without drainage. Airway intact. Throat without injection. Tongue is midline Neck is supple no obvious JVD Cardiovascular: Regular rate and rhythm. No murmurs, rubs or gallops. S1-S2 no S3 or S4 Respiratory: Lungs clear to auscultation bilaterally. No wheezes or rhonchi. Abdomen: Soft, binder in place. Musculoskeletal: No gross deformities. No edema. Skin: No obvious rashes or erythema. Neuro: Sensory and motor grossly intact. Cranial nerves II through XII grossly intact. Psych: Appropriate mood and affect - Preoperative Diagnosis (1) Incarcerated incisional hernia - Postoperative Diagnosis (1) Incarcerated incisional hernia Date of procedure: 12/11/17 Procedure: lap incisional ventral hernia repair with underlay mesh Anesthesia: GETA Surgeon: Shankar Banks MD Estimated blood loss (mL): 5 Pathology: none sent Operation and Findings: ischemia of bowel segment improved at end of operation 3cm defect [id number] placment Assessment and Plan - Plan 1. Abdominal wall hernia/partial small bowel obstruction For details of CT scan see HPI SP HERNIA REPAIR WITH MESH BY DR BANKS 813 IV fluid. Okay to discharge from Surgery standpoint. 2. Obesity strongly recommended diet and exercise DVT prophylaxis SCDs encourage ambulation. Code Status: Full code Discussed Condition With: Patient and General Surgery [facility] Discharge Planning: Discharge Home now. - Time Spent with Patient Total time spent providing and/or coordinating discharge services: Less than 30 minutes - Quality: VTE Deep Vein Thrombosis/Pulmonary Embolism Present on Admission: No Exam Vital signs: Vital Signs 12/12/17 12:00 12/12/17 16:00 12/12/17 20:00 Temperature 97.8 F 97.7 F 98 F Pulse Rate 73 76 78 Respiratory Rate 17 17 20 Blood Pressure 117/65 111/67 124/76 Pulse Oximetry 92 L 93 L 95 12/13/17 00:00 12/13/17 08:00 Temperature 98 F 98.6 F Pulse Rate 78 78 Respiratory Rate 20 20 Blood Pressure 128/81 128/77 Pulse Oximetry 94 L 95 Intake & Output 12/12/17 12/13/17 12/13/17 18:59 06:59 18:59 Intake Total 2100 / 2100 480 / 480 Output Total 2250 / 2250 Balance -150 / -150 480 / 480 Weight 100.4 kg Intake: IV 1100 / 1100 NS Inj 1,000 ML @ 100 mls/hr IV 1000 / 1000 .CONT .Q10H TABITHA Rx#:[id number] Ancef Inj 2,000 MG In NS Inj 80 100 / 100 ML @ 100 mls/hr IV.SIG Q8H TABITHA Rx#:[id number] Oral 1000 / 1000 480 / 480 Output: Urine 2250 / 2250 Other: Post Void Residual 0 # Voids 2 Date of Last Bowel Movement 12/09/17 12/09/17 Narrative: Awake Obesity, no acute distress. Gen.: No acute distress Head: Normocephalic. Atraumatic. EENT: Pupils equal round and reactive to light. Nose without drainage. Airway intact. Throat without injection. Tongue is midline Neck is supple no obvious JVD Cardiovascular: Regular rate and rhythm. No murmurs, rubs or gallops. S1-S2 no S3 or S4 Respiratory: Lungs clear to auscultation bilaterally. No wheezes or rhonchi. Abdomen: Soft, binder in place. Musculoskeletal: No gross deformities. No edema. Skin: No obvious rashes or erythema. Neuro: Sensory and motor grossly intact. Cranial nerves II through XII grossly intact. Psych: Appropriate mood and affect Results Procedures completed during hospitalization: - Preoperative Diagnosis (1) Incarcerated incisional hernia - Postoperative Diagnosis (1) Incarcerated incisional hernia Date of procedure: 12/11/17 Procedure: lap incisional ventral hernia repair with underlay mesh Anesthesia: GETA Surgeon: Shankar Banks MD Estimated blood loss (mL): 5 Pathology: none sent Operation and Findings: ischemia of bowel segment improved at end of operation 3cm defect [id number] placment Labs on day of discharge: Labs from last 24 hours 12/12/17 09:53 Urine Color Yellow Urine Clarity Clear Urine pH 7.0 Ur Specific [place] 1.008 Urine Protein Negative Urine Glucose (UA) Negative Urine Ketones Negative Urine Occult Blood Negative Urine Nitrate Negative Urine Bilirubin Negative Urine Urobilinogen Less than 2 Ur Leukocyte Esterase Negative Urine RBC 3 Urine WBC 1 Urine Bacteria Rare H Urine Mucus Few H Micro UA Comment Cath-culture ind Urine Culture Comments Cath-cult indicated Discharge Plan - Discharge Disposition Patient Disposition: 01 Discharge Home - Discharge Condition Condition: Good - Discharge Order Discharge Orders: Discharge Order (Routine); Ordered 12/13/17 Ordered By: Jeancarlos Garcia - Discharge Details Anticipated Discharge Date: 12/13/17 - Physicians Team Primary Care Provider: Primary Care Irma Gil Attending Provider: Jeancarlos Garcia Other Providers: Elmer Castro MD ; Surgeons,[facility] - Rxs /Orders / Referrals /Forms Prescriptions: New acetaminophen-codeine [Tylenol-Codeine #3] 300-30 mg Tablet 1 tab PO Q6H PRN (Reason: PAIN) 3 Days Qty: 12 RF: 0 Continue calcium carbonate [Calcium 500] 500 mg calcium (1,250 mg) Tablet 1,000 mg PO DAILY cyanocobalamin (vitamin B-12) [Vitamin B-12] 1,000 mcg Tablet 1,000 mcg PO DAILY multivitamin [Multiple Vitamins] Tablet 1 mcg PO DAILY vitamin A 10,000 unit Capsule 20,000 unit PO DAILY Referrals: [facility] Orantes [Other] - See Instructions Shankar Banks MD [Physician] - See Instructions Primary Care Irma Gil [Primary Care Provider] - See Instructions - Discharge Instructions Patient Printed Instructions: Acetaminophen/Codeine (By mouth), Lysis of Abdominal Adhesions (DC), Steristrips (ED), Ventral Hernia Repair (DC)
== END 2017-12-13 12:00 | disposition home or self-care (01) ==
LOC: NEDDLT 22:36 → NEPHCDU 22:36 → OBSVTOIN 12-10 00:53 → N07 12-11 08:03
PROVIDERS: ADMIT Internal Medicine; ATTEND Internal Medicine